=== PATIENT | male | born 1970 | race Caucasian/White ===

== ENCOUNTER 2022-06-22 07:55 | Outpatient (CLI) | payer BC, SELFPAY ==
--- NOTE | 2022-06-22 09:49 | W.ANESCHARGE ---
Anesthesia Charges Start Date/Time Anesthesia Start Date: 06/22/22 Anesthesia Start Time: 08:58 Stop Date/Time Anesthesia Stop Date: 06/22/22 Anesthesia Stop Time: 09:45 Summary Emergency: No
--- NOTE | 2022-06-22 09:50 | W.ANESCHARGE ---
Anesthesia Charges Start Date/Time Anesthesia Start Date: 06/22/22 Anesthesia Start Time: 08:58 Stop Date/Time Anesthesia Stop Date: 06/22/22 Anesthesia Stop Time: 09:45 Summary Emergency: No
== END 2022-06-22 07:56 | disposition home or self-care (01) ==
PROVIDERS: PCP Family Medicine; Visit Provider Internal Medicine Gastroenterology
DX: Z12.11 Encounter for screening for malignant neoplasm of colon (principal); K63.5 Polyp of colon
CPT/HCPCS: 00811; 45380; 45385; 88305; J2704

== ENCOUNTER 2022-10-15 12:23 | Emergency (ER) | payer BC, SELFPAY ==
[2022-10-15] VITALS (11 sets, daily range): BP systolic 127–149; BP diastolic 64–90; PULSE 55–68; RESP 16; TEMP 36.7; O2SAT 96–97; BMI 45.9
[2022-10-15 13:12] LABS: Basophils Absolute Auto 0.04 K/uL (0.00-0.30); Basophils Percent Auto 0.4 % (0.0-3.0); Eosinophils Absolute Auto 0.22 K/uL (0.00-0.50); Eosinophils Percent Auto 2.1 % (0.0-7.0); Immature Granulocytes Abs Auto 0.01 K/uL (0.00-0.30); Immature Granulocytes Pct Auto 0.1 %; Lymphocytes Absolute Auto 2.21 K/uL (0.90-2.90); Lymphocytes Percent Auto 20.9 % (20-44); Mean Corpuscular HGB Conc 33 gm/dL (32-36); Mean Corpuscular Hemoglobin 31 pg (26-34); Mean Corpuscular Volume 93 fL (80-100); Monocytes Percent Auto 8.7 % (0.0-11.0); Neutrophils Absolute Auto 7.15 K/uL (1.7-7.0); Neutrophils Percent Auto 67.8 % (42.0-72.0); Platelet Count* 196 K/uL (140-440); RDW Coefficient of Variation % 12.6 % (11.5-15.5); Red Blood Count 4.83 m/uL (4.30-5.90); White Blood Count* 10.55 K/uL (4.50-11.00)
--- NOTE | 2022-10-15 13:15 | ED_ITS ---
HPI - Chest Pain General Chief Complaint: Chest Pain Stated Complaint: Chest pain Time Seen by Provider: 10/15/22 12:24 History of Present Illness HPI narrative: This 51-year-old male comes in reporting some chest discomfort on and off over the past 3 days. He does not report any nausea, vomiting, shortness of breath, or diaphoresis. He states that he did feel transient lightheadedness once when ambulating up stairs. He reports good exercise tolerance and states that he typically walks 60 minutes daily without any symptoms. He does report a prior history of a pneumonia during which time his troponin level increased somewhat. He was admitted to the hospital and a tag and label cutter a ran further tests including CT angiography an ultrasonography of his heart. There was no evidence of damage. His elevated troponin at that time was more likely demand ischemia. He is taking his current medications which include blood pressure and cholesterol treatments. He is also taking Lasix. 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 He states that his chest discomfort seems to come and go randomly and at times he is able to relieve the symptoms by taking a deep breath or with change of position. Related Data Home Medications Medication Instructions Recorded Confirmed atorvastatin 20 mg tablet 20 mg PO DAILY 10/15/22 10/15/22 carvedilol 25 mg tablet 25 mg PO BID 10/15/22 10/15/22 diltiazem HCl 120 mg 120 mg PO DAILY 10/15/22 10/15/22 capsule,extended release 24 hr furosemide 20 mg tablet 20 mg PO BID 10/15/22 10/15/22 losartan 100 mg tablet 100 mg PO DAILY 10/15/22 10/15/22 Allergies Allergy/AdvReac Type Severity Reaction Status Date / Time No Known Drug Allergies Allergy Verified 10/15/22 12:31 Review of Systems Status of ROS Reports: 10 or more systems reviewed and unremarkable except as noted in History and below Narrative Constitutional: No fevers, no weight gain or loss. Eyes: No discharge. No vision changes. HENT: No congestion, no sore throat, no ear pain. Cardiovascular: No palpitations. Chest discomfort as described above. Respiratory: No shortness of breath, no wheezes, no cough. Gastrointestinal: No abdominal pain, no vomiting, no diarrhea. Genitourinary: No dysuria, no hematuria. Musculoskeletal: Normal range of motion. Skin: No rashes, no pruritis. Neurological: No dizziness, weakness, sensory change, speech change. Endo/Heme/Allergies: No bruising or bleeding. No polydipsia. Pysch: no suicidality, no anxiety, no insomnia. All other systems reviewed and are negative. [facility] Social History Smoking Status: Former smoker What tobacco products do you use: cigarettes Smoking quit date/years: <= 15 years ago Do you use any of these nicotine containing products: None Second hand tobacco smoke exposure: No How often do you have a drink containing alcohol: monthly or less How many standard drinks containing alcohol do you have on a typical day: 1 or 2 AUDIT-C Alcohol total score: 1 Non-prescribed substance use: marijuana (any form) service: No Exam Narrative Exam Narrative: Constitutional: Well-developed, well-nourished, no acute distress. HEENT: Normocephalic, atraumatic. Neck: Normal range of motion. Nontender. Supple. Heart: Regular. No murmurs. Normal rate. Intact distal pulses. Lungs: Clear to auscultation. No chest discomfort. No wheezes, rhonchi, or rales. Abdomen: Normal bowel sounds. Nontender. No rebound tenderness. Genitalia: Deferred. Back: No midline tenderness. Normal range of motion. Extremities: Normal range of motion. No injury. Skin: Intact. No rash. Warm. No erythema or pallor. Neurologic: No altered sensation. No weakness. Alert and oriented. Psychiatric: No suicidality. No anxiety or depression. No insomnia. Nursing notes and vitals signs are reviewed. Const Vital Signs, click to edit/add: Vital Signs - 24 hr 10/15/22 12:31 10/15/22 12:30 10/15/22 12:31 Temperature 98.1 F Pulse Rate 68 65 Pulse Rate [Pulse Oximeter] 63 Respiratory Rate 16 Blood Pressure 142/72 H Blood Pressure [Left Upper Arm] 142/72 H Pulse Oximetry 96 96 96 Oxygen Delivery Method Room Air 10/15/22 12:42 10/15/22 12:57 10/15/22 13:00 Temperature Pulse Rate 57 L 58 L Pulse Rate [Pulse Oximeter] Respiratory Rate Blood Pressure 131/64 Blood Pressure [Left Upper Arm] Pulse Oximetry 96 96 Oxygen Delivery Method 10/15/22 13:03 10/15/22 13:15 10/15/22 13:30 Temperature Pulse Rate 61 59 L 59 L Pulse Rate [Pulse Oximeter] Respiratory Rate Blood Pressure 127/77 Blood Pressure [Left Upper Arm] Pulse Oximetry 96 97 96 Oxygen Delivery Method 10/15/22 13:32 Temperature Pulse Rate 55 L Pulse Rate [Pulse Oximeter] Respiratory Rate Blood Pressure 145/74 H Blood Pressure [Left Upper Arm] Pulse Oximetry 97 Oxygen Delivery Method Course Vital Signs Vital signs: Initial Vital Signs Pulse Rate 68 10/15/22 12:30 Pulse Oximetry 96 10/15/22 12:30 Vital Signs Pulse Rate 68 10/15/22 12:30 Pulse Oximetry 96 10/15/22 12:30 Temperature 98.1 F 10/15/22 12:31 Pulse Rate 55 L 10/15/22 13:32 Respiratory Rate 16 10/15/22 12:31 Blood Pressure 145/74 H 10/15/22 13:32 Pulse Oximetry 97 10/15/22 13:32 Oxygen Delivery Method Room Air 10/15/22 12:31 MDM - Chest Pain MDM Narrative Medical decision making narrative: This patient comes in reporting chest discomfort that is not related to exertion. He was seen in urgent care and an EKG there was normal. Given his past history of a pneumonia that caused a bump in his troponin he was sent here for further evaluation and treatment. He tells me that this pneumonia event 3 years ago did involve a thorough cardiac workup but did not include an angiogra m. There was no evidence of injury to his heart. Since then he states that he has quit smoking and is taking his medications and regularly exercising. His chest pain today is rather random and not related to exertion. In fact sometimes he gets relief by taking a deep breath or changing his position. EKG here shows normal sinus rhythm and lab results returned with reassuring findings. His troponin returns at 0. At the time of discharge the patient appears safe for outpatient management. The treatment plan is reviewed along with written and verbal return precautions. Reasons to return and the importance of close followup were also reviewed. Lab Data Labs: Lab Results 10/15/22 10/15/22 Range/Units 12:40 12:56 WBC 10.55 (4.50-11.00) K/uL RBC 4.83 (4.30-5.90) m/uL Hgb 15.0 (13.5-17.5) gm/dL Hct 45.0 (37.0-53.0) % MCV 93 (80-100) fL MCH 31 (26-34) pg MCHC 33 (32-36) gm/dL RDW Coeff of Bassem 12.6 (11.5-15.5) % Plt Count 196 (140-440) K/uL Neut % (Auto) 67.8 (42.0-72.0) % Lymph % (Auto) 20.9 (20-44) % [place] % (Auto) 8.7 (0.0-11.0) % Eos % (Auto) 2.1 (0.0-7.0) % Baso % (Auto) 0.4 (0.0-3.0) % Neut # (Auto) 7.15 H (1.7-7.0) K/uL Lymph # (Auto) 2.21 (0.90-2.90) K/uL [place] # (Auto) 0.90 (0.00-0.90) K/UL Eos # (Auto) 0.22 (0.00-0.50) K/uL Baso # (Auto) 0.04 (0.00-0.30) K/uL Sodium 138 (135-149) mmol/L Potassium 4.0 (3.6-5.1) mmol/L Chloride 105 (96-114) mmol/L Carbon Dioxide 27 (20-32) mmol/L BUN 25 (7-30) mg/dL Creatinine 1.3 (0.5-1.5) mg/dL Estimated Creat Clear 70.79 Estimated GFR 66 ml/min Glucose 98 (60-115) mg/dL Calcium 8.5 (8.4-10.6) mg/dL POC Troponin I 0.00 L (0.01-0.04) ng/ml ECG Data Attestation: I personally reviewed and interpreted this ECG as follows: Interpretation: Normal sinus rhythm. Rate is 63 beats per minute. There are no ST or T-wave abnormalities. Discharge Plan Discharge Clinical Impression: Atypical chest pain Patient Disposition: Home, Self-Care Condition: Stable Additional Instructions: Continue current plans. Follow up with MD as needed. Return if symptoms are worsening or persistent. Prescriptions: No Action carvedilol 25 mg tablet 25 mg PO BID atorvastatin 20 mg tablet 20 mg PO DAILY diltiazem HCl 120 mg capsule,extended release 24hr 120 mg PO DAILY furosemide 20 mg tablet 20 mg PO BID losartan 100 mg tablet 100 mg PO DAILY Follow Up/Referrals: María Suero MD [Primary Care Provider] - Stand Alone Forms: [employer] Info Instructions
[2022-10-15 13:16] LABS: Slide Review Reflex No
[2022-10-15 13:22] LABS: Chloride* 105 mmol/L (96-114); Sodium* 138 mmol/L (135-149)
[2022-10-15 13:25] LABS: Blood Urea Nitrogen* 25 mg/dL (7-30); Carbon Dioxide* 27 mmol/L (20-32); Creatinine* 1.3 mg/dL (0.5-1.5); Est. Creatinine Clearance* 70.79; Estimated Glomerular Filt Rate 66 ml/min
[2022-10-15 13:26] LABS: Calcium* 8.5 mg/dL (8.4-10.6); Glucose* 98 mg/dL (60-115)
== END 2022-10-15 14:32 | disposition home or self-care (01) ==
PROVIDERS: Emergency Provider Emergency Medicine Emergency Medical Services; PCP Family Medicine
DX: R07.9 Chest pain, unspecified (principal)
CPT/HCPCS: 36415; 80048; 84484; 85025; 93005; 99284

== ENCOUNTER 2023-04-28 15:14 | Outpatient (CLI) | payer BC, SELFPAY | END 2023-04-28 15:15 | disposition home or self-care (01) | PROVIDERS: PCP Family Medicine; Visit Provider Nurse Practitioner Family | DX: M25.579 Pain in unspecified ankle and joints of unspecified foot (principal) | CPT/HCPCS: 84550; 85651; 86618 ==